=== PATIENT | female | born 1970 | race Two or more races ===

== ENCOUNTER 2022-09-14 16:32 | Inpatient (IN) | payer MEDICAID, OTHER ==
[~2022-09-14] VITALS: Ht 162.6 cm; Wt 75.2 kg
[2022-09-14 17:34] LABS: Basophils # (auto) 0.1 10 ^3/uL (0-0.2); Eosinophils # (auto) 0 10 ^3/uL (0-0.8); Eosinophils % (auto) 0.1 % (0.0-7.0); Hemoglobin 13.2 g/dL (12.2-16.2); Monocytes # (auto) 0.9 10 ^3/uL (0-1.3); Neutrophils # (auto) 11.2 10 ^3/uL (1.6-8.6); Nucleated Red Blood Cells % 0.1 %; White Blood Cell 14.7 10^3/uL (4.4-10.8)
[2022-09-14 17:36] LABS: Basophils % (auto) 0.6 % (0.0-2.0); Lymphocytes # (auto) 2.5 10 ^3/uL (0.4-5.4); Lymphocytes % (auto) 17.3 % (10.0-50.0); Mean Corpuscular Hemoglobin 31.1 pg (28.0-32.0); Mean Corpuscular Volume 94.5 fL (80.0-100.0); Monocytes % (auto) 6.1 % (0.0-12.0); Neutrophils % (auto) 75.9 % (37.0-80.0); Red Blood Cells 4.24 10^6/uL (4.0-5.20); Red Cell Distribution Width 14.5 % (11.8-14.3)
[2022-09-14 17:48] LABS: Partial Thromboplastin Time 29.2 sec (24.6-33.4)
[2022-09-14 17:53] LABS: Anion Gap 7 (5-15); BUN/Creatinine Ratio 18.5; Blood Urea Nitrogen 17 mg/dL (7-18); Calcium 10.1 mg/dL (8.5-10.1); Carbon Dioxide 34 mmol/L (21-32); Chloride 98 mmol/L (98-107); GFR African American 82 mL/min; GFR Non-African American 68 mL/min; Glucose 128 mg/dL (74-106); Sodium 139 mmol/L (136-145)
[2022-09-14 18:05] LABS: Albumin 2.8 g/dL (3.4-5.0); Potassium 2.7 mmol/L (3.5-5.1)
[2022-09-14 18:10] LABS: Alanine Aminotransferase 84 U/L (13-56)
[2022-09-14 18:11] LABS: Alkaline Phosphatase 140 U/L (45-117); Aspartate Aminotransferase 61 U/L (15-37); Bilirubin, Total 0.4 mg/dL (0.2-1.0); Total Protein 8.9 g/dL (6.4-8.2)
[2022-09-14] MEDS ORDERED: POTASSIUM EFFERVESENT TAB 25 MEQ PO ONE (18:30)
[2022-09-14] MEDS ORDERED: cefTRIAXone 1GM/50ML D5W 50 ML IV ONE (21:00)
[2022-09-14] MEDS ORDERED: CLINDAMYCIN 600MG IV 50 ML IV ONE (21:00)
[2022-09-14] MEDS ORDERED: ACETAMINOPHEN 325 MG TAB PO PRN (22:00)
[2022-09-14] MEDS ORDERED: TEMAZEPAM 15 MG CAP PO PRN (22:00)
[2022-09-14] MEDS ORDERED: ONDANSETRON HCL 4 MG/2 ML VIAL IV PRN (22:00)
[2022-09-14] MEDS: CLINDAMYCIN 600MG IV 50 ML IV SCH (22:00)
[2022-09-14] MEDS: HYDROcodone-ACET 5/325MG TAB PO PRN (22:36)
[2022-09-15] MEDS: MORPHINE SULFATE INJ 2 MG/ml SYRG IV PRN (02:46)
[2022-09-15 05:38] LABS: Basophils # (auto) 0.1 10 ^3/uL (0-0.2); Monocytes # (auto) 1.1 10 ^3/uL (0-1.3); Red Cell Distribution Width 14.5 % (11.8-14.3)
[2022-09-15 05:39] LABS: Eosinophils # (auto) 0 10 ^3/uL (0-0.8); Eosinophils % (auto) 0.1 % (0.0-7.0); Hematocrit 37.1 % (36.0-46.0); Hemoglobin 12.1 g/dL (12.2-16.2); Lymphocytes % (auto) 17.7 % (10.0-50.0); Mean Corpuscular Hemoglobin 30.9 pg (28.0-32.0); Mean Corpuscular Hgb Conc. 32.7 g/dL (32.0-36.0); Mean Corpuscular Volume 94.4 fL (80.0-100.0); Monocytes % (auto) 9.4 % (0.0-12.0); Neutrophils # (auto) 8.3 10 ^3/uL (1.6-8.6); Neutrophils % (auto) 71.8 % (37.0-80.0); Red Blood Cells 3.93 10^6/uL (4.0-5.20); White Blood Cell 11.6 10^3/uL (4.4-10.8)
[2022-09-15] MEDS: CLINDAMYCIN 600MG IV 50 ML IV SCH ×3 (06:14→22:14)
[2022-09-15] MEDS: HYDROcodone-ACET 5/325MG TAB PO PRN ×2 (07:05→22:13)
[2022-09-15 08:03] LABS: Albumin 2.7 g/dL (3.4-5.0); Calcium 9.5 mg/dL (8.5-10.1)
[2022-09-15 08:06] LABS: BUN/Creatinine Ratio 21.4; Bilirubin, Total 0.4 mg/dL (0.2-1.0); Total Protein 7.7 g/dL (6.4-8.2)
[2022-09-15 08:08] LABS: Potassium 2.8 mmol/L (3.5-5.1)
[2022-09-15] MEDS ORDERED: SODIUM CHLORIDE 0.9% 1,000 ML IV ONE (09:15)
[2022-09-15] MEDS: cefTRIAXone 1GM/50ML D5W 50 ML IV SCH (09:59)
[2022-09-15] MEDS ORDERED: ENOXAPARIN SOD 40 MG/0.4 ML SYRINGE SC SCH (10:00)
[2022-09-15] MEDS: POTASSIUM CHL 20MEQ/100ML 100 ML IV SCH ×4 (10:29→17:20)
[2022-09-15] MEDS ORDERED: LACTATED RINGER'S 1,000 ML IV SCH (10:30)
[2022-09-15] MEDS: amLODIPine BESYLATE 5 MG TAB PO SCH (10:37)
[2022-09-15 14:47] VITALS: BP 150/87
[2022-09-15] MEDS ORDERED: POTASSIUM CHL 20 Meq TABLET PO ONE (15:15)
[2022-09-15 16:55] VITALS: BP 159/92
[2022-09-15] MEDS ORDERED: DICL1GEL50 TOP (18:46)
[2022-09-15] MEDS ORDERED: HYDR-4902 PO (18:46)
[2022-09-15] MEDS ORDERED: AMLO-489 PO (18:46)
[2022-09-15] MEDS ORDERED: METH4PAK3 PO (18:46)
[2022-09-15 22:00] VITALS: BP 140/91
[2022-09-15] MEDS: D5W/SOD CHLO 0.9% 1,000 ML IV SCH (22:17)
[2022-09-15 23:38] LABS: Magnesium 2.2 mg/dL (1.6-2.6); Potassium 3.8 mmol/L (3.5-5.1)
[2022-09-16] MEDS: MORPHINE SULFATE INJ 2 MG/ml SYRG IV PRN (02:34)
[2022-09-16 05:00] VITALS: BP 158/96
[2022-09-16] MEDS ORDERED: MORPHINE SULFATE INJ 2 MG/ml SYRG IV ONE (05:15)
[2022-09-16] MEDS: D5W/SOD CHLO 0.9% 1,000 ML IV SCH ×2 (05:19→17:28)
[2022-09-16] MEDS: hydrALAZINE HCL 20 MG/ML VL IV PRN (05:27)
[2022-09-16] MEDS: CLINDAMYCIN 600MG IV 50 ML IV SCH ×3 (05:28→21:48)
[2022-09-16 05:49] LABS: Basophils # (auto) 0.1 10 ^3/uL (0-0.2); Basophils % (auto) 0.6 % (0.0-2.0); Eosinophils # (auto) 0 10 ^3/uL (0-0.8); Eosinophils % (auto) 0.4 % (0.0-7.0); Hematocrit 36.3 % (36.0-46.0); Hemoglobin 11.8 g/dL (12.2-16.2); Lymphocytes # (auto) 2.4 10 ^3/uL (0.4-5.4); Mean Corpuscular Hemoglobin 31.2 pg (28.0-32.0); Mean Corpuscular Hgb Conc. 32.6 g/dL (32.0-36.0); Mean Corpuscular Volume 95.6 fL (80.0-100.0); Monocytes # (auto) 0.9 10 ^3/uL (0-1.3); Monocytes % (auto) 8.9 % (0.0-12.0); Neutrophils # (auto) 6.5 10 ^3/uL (1.6-8.6); Neutrophils % (auto) 66.1 % (37.0-80.0); Nucleated Red Blood Cells % 0.1 %; Red Cell Distribution Width 14.9 % (11.8-14.3); White Blood Cell 9.8 10^3/uL (4.4-10.8)
[2022-09-16 06:09] LABS: BUN/Creatinine Ratio 14.8; Calcium 9.5 mg/dL (8.5-10.1); Potassium 3.8 mmol/L (3.5-5.1)
[2022-09-16 06:37] LABS: Urine Bacteria FEW /hpf (None Seen); Urine Blood TRACE /uL (Negative); Urine Hyaline Cast FEW /lpf (0 - 2); Urine Specific Gravity 1.018 (1.001-1.035); Urine WBC 78 /hpf (0 - 5)
[2022-09-16 06:51] LABS: Alcohol, Urine < 3.0 mg/dL (0-10); Amphetamine Screen, Urine NEGATIVE (NEGATIVE); Barbiturate Scree,Urine NEGATIVE (NEGATIVE); Benzodiazephine Screen, Urine NEGATIVE (NEGATIVE); Cannabinoid Screen, Urine POSITIVE (NEGATIVE); Cocaine Screen, Urine NEGATIVE (NEGATIVE); Opiate Scree,Urine POSITIVE (NEGATIVE); Phencyclidine Screen, Urine NEGATIVE (NEGATIVE)
[2022-09-16] MEDS ORDERED: BUPIVACAINE 0.25% INJ 50ML VIAL ONE ×2 (06:54→07:07)
[2022-09-16] MEDS ORDERED: KETAMINE HCL 10 ML ONE (07:06)
[2022-09-16] MEDS ORDERED: DexAMETHasone SOD PHOS 4 MG/1ML SDV INJ ONE (07:07)
[2022-09-16] MEDS ORDERED: ceFAZolin 1GM/50ML 100 ML IV ONE (07:13)
[2022-09-16] MEDS ORDERED: EPINEPHrine HCL 1 MG/1 ML AMP ONE ×3 (07:17→08:40)
[2022-09-16] MEDS ORDERED: LIDOCAINE 2% JELLY 11ml (GLYDO) ONE (07:19)
[2022-09-16] MEDS ORDERED: ceFAZolin 1GM VL ONE (07:52)
[2022-09-16] MEDS ORDERED: PROPOFOL 10 MG/ML 20 ML IV ONE (07:59)
[2022-09-16] MEDS ORDERED: SODIUM CHLORIDE LOCK 10 ML ONE (08:22)
[2022-09-16] MEDS ORDERED: PHENYLEPHRINE HCL 10 MG/ML VL ONE (08:22)
[2022-09-16] MEDS ORDERED: ESMOLOL HCL 10 ML IV ONE (09:11)
[2022-09-16] MEDS ORDERED: D5W/LACTATED RINGERS 1,000 ML IV SCH (09:45)
[2022-09-16] MEDS ORDERED: ePHEDrine SULFATE 50 MG/ML AMP IV PRN (10:15)
[2022-09-16] MEDS ORDERED: LABETALOL HCL 5 MG/ML 4ML SYRINGE IV PRN (10:15)
[2022-09-16] MEDS ORDERED: fentaNYL CITRATE 100 MCG/2 ML VL IV PRN (10:15)
[2022-09-16] MEDS ORDERED: NALOXONE HCL 0.4 MG/ML VIAL IV PRN (10:15)
[2022-09-16] MEDS ORDERED: FLUMAZENIL 0.1 MG/ML INJ 10ML MDV IV PRN (10:15)
[2022-09-16] MEDS ORDERED: ONDANSETRON HCL 4 MG/2 ML VIAL IV PRN (10:15)
[2022-09-16] MEDS ORDERED: hydrALAZINE HCL 20 MG/ML VL IV PRN (10:15)
[2022-09-16] MEDS: HYDROmorphone HCL 2 MG/ML VL/or syr IV PRN ×2 (10:20→10:32)
[2022-09-16 13:00] VITALS: BP 148/87
[2022-09-16] MEDS: amLODIPine BESYLATE 5 MG TAB PO SCH (13:15)
[2022-09-16] MEDS: cefTRIAXone 1GM/50ML D5W 50 ML IV SCH (13:15)
[2022-09-16 13:49] LABS: Basophils # (auto) 0.1 10 ^3/uL (0-0.2); Basophils % (auto) 0.3 % (0.0-2.0); Eosinophils # (auto) 0 10 ^3/uL (0-0.8); Lymphocytes # (auto) 0.9 10 ^3/uL (0.4-5.4); Lymphocytes % (auto) 4.9 % (10.0-50.0); Mean Corpuscular Hgb Conc. 32.8 g/dL (32.0-36.0); Neutrophils % (auto) 93.4 % (37.0-80.0)
[2022-09-16 13:51] LABS: Eosinophils % (auto) 0.1 % (0.0-7.0); Hematocrit 36.1 % (36.0-46.0); Hemoglobin 11.8 g/dL (12.2-16.2); Mean Corpuscular Hemoglobin 31.2 pg (28.0-32.0); Mean Corpuscular Volume 94.9 fL (80.0-100.0); Monocytes # (auto) 0.2 10 ^3/uL (0-1.3); Monocytes % (auto) 1.3 % (0.0-12.0); Neutrophils # (auto) 17.4 10 ^3/uL (1.6-8.6); Nucleated Red Blood Cells % 0.1 %; Red Cell Distribution Width 14.4 % (11.8-14.3); White Blood Cell 18.6 10^3/uL (4.4-10.8)
[2022-09-16 14:12] LABS: Calcium 9.5 mg/dL (8.5-10.1); Potassium 4.1 mmol/L (3.5-5.1)
[2022-09-16 14:13] LABS: BUN/Creatinine Ratio 15.8
[2022-09-16 17:01] VITALS: BP 136/97
[2022-09-16] MEDS: HYDROcodone-ACET 10/325MG TAB PO PRN (17:29)
[2022-09-16 22:00] VITALS: BP 136/81
[2022-09-17] MEDS: D5W/SOD CHLO 0.9% 1,000 ML IV SCH (00:03)
[2022-09-17] MEDS: HYDROcodone-ACET 10/325MG TAB PO PRN ×3 (03:11→21:22)
[2022-09-17 05:00] VITALS: BP 125/64
[2022-09-17] MEDS: CLINDAMYCIN 600MG IV 50 ML IV SCH (05:34)
[2022-09-17 06:26] LABS: Basophils # (auto) 0 10 ^3/uL (0-0.2); Basophils % (auto) 0.1 % (0.0-2.0); Eosinophils # (auto) 0 10 ^3/uL (0-0.8); Hemoglobin 10.5 g/dL (12.2-16.2); Lymphocytes # (auto) 1.7 10 ^3/uL (0.4-5.4); Mean Corpuscular Volume 94.2 fL (80.0-100.0)
[2022-09-17 06:28] LABS: Hematocrit 32.5 % (36.0-46.0); Lymphocytes % (auto) 12.7 % (10.0-50.0); Mean Corpuscular Hemoglobin 30.3 pg (28.0-32.0); Mean Corpuscular Hgb Conc. 32.2 g/dL (32.0-36.0); Monocytes # (auto) 0.9 10 ^3/uL (0-1.3); Monocytes % (auto) 6.5 % (0.0-12.0); Neutrophils % (auto) 80.7 % (37.0-80.0); Red Blood Cells 3.45 10^6/uL (4.0-5.20); Red Cell Distribution Width 14.3 % (11.8-14.3); White Blood Cell 13.7 10^3/uL (4.4-10.8)
[2022-09-17 06:47] LABS: Calcium 9.3 mg/dL (8.5-10.1); Potassium 3.5 mmol/L (3.5-5.1)
[2022-09-17 06:49] LABS: BUN/Creatinine Ratio 22.5
[2022-09-17 08:00] VITALS: BP 150/89
[2022-09-17 09:00] VITALS: BP 150/89
[2022-09-17] MEDS: cefTRIAXone 1GM/50ML D5W 50 ML IV SCH (09:07)
[2022-09-17] MEDS: MORPHINE SULFATE INJ 2 MG/ml SYRG IV PRN (10:18)
[2022-09-17] MEDS: amLODIPine BESYLATE 5 MG TAB PO SCH (10:18)
[2022-09-17] MEDS ORDERED: LIDOCAINE 1% (LOCAL ANESTH.) PF 5ml SDV ID ONE (11:45)
[2022-09-17 13:00] VITALS: BP 145/84
[2022-09-17] MEDS ORDERED: CLIN300C8 PO (15:45)
[2022-09-17 16:49] VITALS: BP 174/100
[2022-09-17] MEDS: FERROUS SULFATE 300 MG/5 ML ORAL LIQ PO SCH (17:45)
[2022-09-17] MEDS: SODIUM CHLOR 0.9% PF (SALINE LOCK) 10ML VIAL/SYR IV SCH (21:23)
[2022-09-17] MEDS: CLINDAMYCIN HCL 150 MG CAP PO SCH (21:24)
[2022-09-17] MEDS: ASCORBIC ACID 500 MG TAB PO SCH (21:25)
[2022-09-17 22:00] VITALS: BP 144/94
[2022-09-18] MEDS: HYDROcodone-ACET 10/325MG TAB PO PRN ×4 (03:23→20:54)
[2022-09-18 05:00] VITALS: BP 167/98
[2022-09-18] MEDS: hydrALAZINE HCL 20 MG/ML VL IV PRN (05:20)
[2022-09-18] MEDS: CLINDAMYCIN HCL 150 MG CAP PO SCH ×3 (05:24→20:55)
[2022-09-18 05:28] LABS: Basophils # (auto) 0 10 ^3/uL (0-0.2); Eosinophils # (auto) 0 10 ^3/uL (0-0.8); Eosinophils % (auto) 0.4 % (0.0-7.0); Hemoglobin 10.8 g/dL (12.2-16.2); Monocytes # (auto) 0.5 10 ^3/uL (0-1.3); Neutrophils # (auto) 4.9 10 ^3/uL (1.6-8.6); Nucleated Red Blood Cells % 0.1 %; Red Cell Distribution Width 14.6 % (11.8-14.3); White Blood Cell 8.1 10^3/uL (4.4-10.8)
[2022-09-18 05:30] LABS: Basophils % (auto) 0.4 % (0.0-2.0); Lymphocytes # (auto) 2.6 10 ^3/uL (0.4-5.4); Lymphocytes % (auto) 31.7 % (10.0-50.0); Mean Corpuscular Hemoglobin 30.5 pg (28.0-32.0); Mean Corpuscular Hgb Conc. 32.7 g/dL (32.0-36.0); Mean Corpuscular Volume 93.3 fL (80.0-100.0); Monocytes % (auto) 6.4 % (0.0-12.0); Neutrophils % (auto) 61.1 % (37.0-80.0); Red Blood Cells 3.54 10^6/uL (4.0-5.20)
[2022-09-18 05:38] LABS: BUN/Creatinine Ratio 18.9; Calcium 8.5 mg/dL (8.5-10.1); Potassium 4.1 mmol/L (3.5-5.1)
[2022-09-18 08:00] VITALS: BP 163/87
[2022-09-18] MEDS: FERROUS SULFATE 300 MG/5 ML ORAL LIQ PO SCH ×2 (08:40→17:52)
[2022-09-18] MEDS: cefTRIAXone 1GM/50ML D5W 50 ML IV SCH (08:40)
[2022-09-18] MEDS: ENOXAPARIN SOD 40 MG/0.4 ML SYRINGE SC SCH (08:47)
[2022-09-18] MEDS: amLODIPine BESYLATE 5 MG TAB PO SCH (08:48)
[2022-09-18] MEDS: ASCORBIC ACID 500 MG TAB PO SCH ×2 (08:48→20:54)
[2022-09-18 09:00] VITALS: BP 163/87
[2022-09-18] MEDS: SODIUM CHLOR 0.9% PF (SALINE LOCK) 10ML VIAL/SYR IV SCH ×2 (10:00→20:56)
[2022-09-18 13:00] VITALS: BP 166/83
[2022-09-18 17:00] VITALS: BP 157/85
[2022-09-18 22:00] VITALS: BP 148/88
[2022-09-19 04:56] VITALS: BP 153/88
[2022-09-19] MEDS: CLINDAMYCIN HCL 150 MG CAP PO SCH ×2 (06:18→14:29)
[2022-09-19] MEDS: HYDROcodone-ACET 10/325MG TAB PO PRN ×2 (06:18→15:59)
[2022-09-19 08:06] LABS: RPR Non Reactive (Non Reactive)
[2022-09-19 08:10] VITALS: BP 150/102
[2022-09-19] MEDS: cefTRIAXone 1GM/50ML D5W 50 ML IV SCH (08:42)
[2022-09-19] MEDS: FERROUS SULFATE 300 MG/5 ML ORAL LIQ PO SCH ×2 (08:42→18:28)
[2022-09-19 09:00] VITALS: BP 150/102
[2022-09-19] MEDS: ASCORBIC ACID 500 MG TAB PO SCH (10:49)
[2022-09-19] MEDS: ENOXAPARIN SOD 40 MG/0.4 ML SYRINGE SC SCH (10:49)
[2022-09-19] MEDS: SODIUM CHLOR 0.9% PF (SALINE LOCK) 10ML VIAL/SYR IV SCH (10:50)
[2022-09-19] MEDS: amLODIPine BESYLATE 5 MG TAB PO SCH (10:50)
[2022-09-19 13:00] VITALS: BP 142/83
[2022-09-19 17:17] VITALS: BP 142/92
[2022-09-19 18:51] VITALS: BP 142/92
== END 2022-09-19 19:57 | disposition home health service (06) | DRG 710 ==
LOC: ER 16:32 → EDBD 16:32 → OVERFLOW 22:02 → CENTRAL 09-15 14:05
PROVIDERS: ADMIT Nurse Practitioner; ATTEND Internal Medicine
PROC: 05HB33Z Insertion of Infusion Device into Right Basilic Vein, Percutaneous Approach (ICD-10-PCS; 2022-09-16)
PROC: B54MZZA Ultrasonography of Right Upper Extremity Veins, Guidance (ICD-10-PCS; 2022-09-16)
PROC: 0SBD4ZZ Excision of Left Knee Joint, Percutaneous Endoscopic Approach (ICD-10-PCS; principal; 2022-09-16 07:37)
PROC: 0M9 Bursae and Ligaments, Drainage (ICD-10-PCS; 2022-09-16 07:37)
PROC: 02HV33Z Insertion of Infusion Device into Superior Vena Cava, Percutaneous Approach (ICD-10-PCS; 2022-09-17)
PROC: B548ZZA Ultrasonography of Superior Vena Cava, Guidance (ICD-10-PCS; 2022-09-17)
DX: A41.9 Sepsis, unspecified organism (principal); E44.0 Moderate protein-calorie malnutrition; M00.9 Pyogenic arthritis, unspecified; M75.51 Bursitis of right shoulder; D75.839 Thrombocytosis, unspecified; I10 Essential (primary) hypertension; M17.12 Unilateral primary osteoarthritis, left knee; E87.6 Hypokalemia; Z68.28 Body mass index [BMI] 28.0-28.9, adult; Z83.3 Family history of diabetes mellitus; Z87.442 Personal history of urinary calculi; Z20.822 Contact with and (suspected) exposure to COVID-19
CPT/HCPCS: 36415; 36569; 71045; 73030; 73221; 73700; 80048; 80053; 80307; 81001; 83605; 83735; 84132; 85025; 85610; 85652; 85730; 86141; 86592; 86703; 86850; 86900; 86901; 87040; 87070; 87075; 87205; 87426; 93005; 93926; 96361; 96365; 96366; 96367; 96375; 97110; 97116; 97163; 97530; G0378; J0171; J0690; J0696; J1100; J2704; J3480; J3490; J7042